=== PATIENT | female | born 1980 | race African-American/Black ===

== ENCOUNTER 2017-02-11 03:13 | Emergency (ER) | payer MEDICAID ==
[~2017-02-11] VITALS: Ht 165.1 cm; Wt 63.0 kg
[2017-02-11 03:18] VITALS: BP 107/57
== END 2017-02-11 04:42 | disposition left against medical advice (07) ==
LOC: EDBD 03:25 → ER 03:25
DX: R10.9 Unspecified abdominal pain (principal); F14.10 Cocaine abuse, uncomplicated; F15.10 Other stimulant abuse, uncomplicated; Z53.21 Procedure and treatment not carried out due to patient leaving prior to being seen by health care provider